=== PATIENT | male | born 2000 | race Caucasian/White ===

== ENCOUNTER 2024-02-25 20:41 | Emergency (ER) | payer OTHER, SELFPAY ==
[2024-02-25 21:06] VITALS: BP 149/92; PULSE 84; RESP 16; TEMP 36.9; O2SAT 97; BMI 29.1
--- NOTE | 2024-02-25 21:53 | PC.NURSE ---
After long discussion, pt states that he feels better. He plans to follow-up with psychiatrist tomorrow. Will be home with supportive . Pt states he is safe and comfortable to go home, knows he may return at any time.
== END 2024-02-25 21:57 | disposition left against medical advice (07) ==
PROVIDERS: Emergency Provider Emergency Medicine
DX: R45.851 Suicidal ideations (principal)
CPT/HCPCS: 99281